=== PATIENT | female | born 1980 | race Caucasian/White ===

== ENCOUNTER → 2021-04-30 | Outpatient (CLI) | payer OTHER ==
[~2021-04-30] MED LIST: ANTIVERT 25MG25 MG PO; ATIVAN 0.50.5 MG/TAB PO; BENTYL 10MG10 MG/CAP PO; DEPO-PROVER150 MG/M1 IM; FLEXERIL 1010 MG/TAB PO; IBU600 MG PO; MOTRIN 600600 MG/TAB PO; MUCINEX 60600 MG/TAB PO; NORCO 325 MG-51 TAB PO; PEPCID 20MG TAB20 MG PO; PRENATAL 191 CTB PO; PRENATAL VITAMI1 TA5 PO; TESSALON PERLE200 MG PO; ZANTAC 150MG T150 MG PO; ZOFRAN ODT4 MG PO
== END ==
LOC: COL.CARD 09:42
DX: R41.0 Disorientation, unspecified (principal); R42 Dizziness and giddiness; R47.89 Other speech disturbances; R29.818 Other symptoms and signs involving the nervous system

== ENCOUNTER 2021-12-29 08:48 | Emergency (ER) | payer OTHER ==
[~2021-12-29] VITALS: Ht 165.1 cm; Wt 111.8 kg
[2021-12-29 10:24] LABS: COLLECTION METHOD CLEAN CATCH
[2021-12-29 10:30] LABS: BASO % 0.4 % (0.0-2.0); EOS # 0.1 K/mm3 (0.0-0.7); EOS % 1.6 % (0.0-4.0); GRAN # 5.5 K/mm3 (1.4-6.5); GRAN % 72.6 % (42.2-75.2); HEMATOCRIT 39.9 % (37.0-47.0); HEMOGLOBIN 13.2 g/dl (12.5-16.0); LYMPH # 1.4 K/mm3 (1.2-3.4); MEAN CELL VOLUME 88 fl (80.0-100.0); MEAN CORPUSCULAR HEMOGLOBIN 29 pg (27-31); MEAN CORPUSCULAR HGB CONC 33 g/dl (33.0-37.0); MEAN PLATELET VOLUME 10.6 fl (7.4-10.4); MONO # 0.5 K/mm3 (0.1-0.6); MONO % 7.1 % (1.7-9.3); PLATELET COUNT 234 K/mm3 (130-400); RED BLOOD COUNT 4.52 M/mm3 (4.10-5.30); REDCELL DISTRIBUTION WIDTH-CV 12.4 % (11.5-14.5)
[2021-12-29 10:36] LABS: MUCOUS Present (NOT PRESENT); PH 6 (5-8); URINE APPEARANCE Hazy (CLEAR/HAZY); URINE BACTERIA None Seen /hpf (NONE SEEN); URINE BILIRUBIN Negative (NEGATIVE); URINE BLOOD Negative (NEGATIVE); URINE COLOR Yellow (YELLOW); URINE GLUCOSE Negative (NEGATIVE); URINE KETONE Negative (NEGATIVE); URINE LEUKOCYTE ESTERASE Negative (NEGATIVE); URINE NITRATE Negative (NEGATIVE); URINE PROTEIN(semi-quant) Negative (NEGATIVE); URINE RBC 0-2 /hpf (0-2); URINE UROBILINOGEN Negative (NEGATIVE)
[2021-12-29 10:44] LABS: ALBUMIN 3.6 gm/dL (3.5-5.0); BILIRUBIN,TOTAL 0.6 mg/dL (0.2-1.2); CALCIUM 9.3 mg/dL (8.4-10.2); CREATININE, serum 0.66 mg/dL (0.57-1.11); POTASSIUM 4.1 mmol/L (3.5-4.5); TOTAL PROTEIN 7.3 gm/dL (6.2-8.1)
[2021-12-29] MEDS ORDERED: ZOFRAN ODT4 MG PO (10:56)
[2021-12-29 12:13] VITALS: BP 126/73; PULSE 89; TEMP 98.5
== END 2021-12-29 12:13 | disposition home or self-care (01) ==
LOC: COL.ER 08:48
PROVIDERS: Physician Assistant
DX: O21.0 Mild hyperemesis gravidarum (principal); Z3A.12 12 weeks gestation of pregnancy; Z91.040 Latex allergy status; Z90.49 Acquired absence of other specified parts of digestive tract
CPT/HCPCS: J2765; J7030

== ENCOUNTER 2022-03-24 08:29 | Outpatient (CLI) | payer OTHER, MEDICAID ==
[~2022-03-24] VITALS: Ht 165.1 cm; Wt 115.9 kg
[2022-03-24 08:40] VITALS: BP 119/60; PULSE 83; TEMP 98.1
[2022-03-24] MEDS ORDERED: PRENATAL 19 CH1 EACH PO (08:52)
--- NOTE | 2022-03-24 09:22 | NUR ---
0835- Pt arrives on unit ambulatory with complaints of not feeling baby move in a "couple of days". Pt into bed. 0840- Bedside doppler used, FHR 140-160, Pt relieved. Pt states she has not felt herself the past couple of days, no appitite and tired. Pt states she also has been noticing her panties wet intermittently over the past couple of weeks. Pt thinks it is just urine but is worried now that it might be amniotice fluid. Assessments completed. VSS. 0900- Amniotrace test performed, Pt encouraged to cough, negative, no color change noted. 0920- Discharge paperwork given and explained. Pt denies questions. Pt ambulates off unit with in stable condition.
== END 2022-03-24 09:22 | disposition home or self-care (01) ==
LOC: LDRO 08:29
DX: O36.8120 Decreased fetal movements, second trimester, not applicable or unspecified (principal); Z3A.23 23 weeks gestation of pregnancy